=== PATIENT | female | born 1985 | race Caucasian/White ===

== ENCOUNTER 2017-01-21 07:29 | Inpatient (IN) | payer OTHER ==
[~2017-01-21] VITALS: Ht 162.6 cm; Wt 81.7 kg
[2017-01-21] VITALS (23 sets, daily range): BP systolic 96–147; BP diastolic 51–71
[~2017-01-21 07:29] MED LIST: ENDOCET 5-3251 EACH PO; Motrin PO
[2017-01-21] MEDS ORDERED: PRENATAL TABLE1 EAC3 PO (08:00)
[2017-01-21] MEDS ORDERED: CELEXA10 MG PO (08:00)
[2017-01-21 09:26] LABS: EOSINOPHIL (%) 1.1 % (0-5); EOSINOPHIL COUNT 0.1 K/uL (0-0.3); HEMATOCRIT 33.3 % (36.0-46.0); IMMATURE GRANULOCYTE (%) 0.5 % (0.0-0.7); IMMATURE GRANULOCYTE COUNT 0.1 K/uL; INSTRUMENT ABS NEUTROPHIL CT 7.1 K/uL; LYMPHOCYTE COUNT 1.4 K/uL (1.0-2.8); MCH 29.9 PG (29.0-34.0); MCHC 33.6 G/DL (30.0-36.0); MEAN PLAT.VOLUME 9.5 uM^3 (9.5-12.4); MONOCYTE (%) 5.6 % (3-12); MONOCYTE COUNT 0.5 K/uL (0-0.8); NEUTROPHIL (%) 77.6 % (45-76); NEUTROPHIL COUNT 7.1 K/uL (1.8-6.4); PLATELET COUNT 179 K/uL (156-360); RBC DIS.WIDTH-CV 14.5 % (11.8-14.6); RBC DIS.WIDTH-SD 46.4 % (39-53); RED BLOOD COUNT 3.74 M/uL (3.80-5.20); WHITE BLOOD COUNT 9.2 K/uL (4.1-10.2)
[2017-01-21] MEDS ORDERED: IBUPROFEN800 MG PO (19:07)
[2017-01-22 07:30] VITALS: BP 98/51
[2017-01-22 22:30] VITALS: BP 98/57
[2017-01-23 07:36] VITALS: BP 109/59
== END 2017-01-23 16:00 | disposition home or self-care (01) | DRG 775 ==
LOC: LDRP-OP 07:29 → 2WEST 07:30 → LDRP-OP 02-27 09:43
PROVIDERS: Nurse Practitioner
DX: O26.893 Other specified pregnancy related conditions, third trimester (principal); O69.1XX0 Labor and delivery complicated by cord around neck, with compression, not applicable or unspecified; Z3A.39 39 weeks gestation of pregnancy; Z37.0 Single live birth; Z87.891 Personal history of nicotine dependence
CPT/HCPCS: 85025; C1755; J2405; J2795; J3010; J7120